=== PATIENT | male | born 1980 | race Caucasian/White ===

== ENCOUNTER 2025-03-11 09:42 | Emergency (ER) | payer BC, SELFPAY ==
[2025-03-11 09:48] VITALS: BP 147/100
[2025-03-11 11:00] LABS: Urine Character Cloudy (Clear)
[2025-03-11 11:07] LABS: Hematocrit 40.8 % (39.0-52.0); Hemoglobin 13.8 g/dL (13.0-18.0); Mean Corp Hgb Conc. 33.8 g/dL (33.0-37.0); Mean Corpuscular Volume 83.4 fL (80.0-94.0); Nucleated Red Blood Cells % 0 % (-); Platelet Count 252 10^3/uL (130-400); Red Cell Dist. Width 12.4 % (11.5-14.5)
[2025-03-11] MEDS: TORADOL 15 MG IV (11:07)
[2025-03-11] MEDS: NSS 1000 IV (11:07)
[2025-03-11 11:17] LABS: Urine Squamous Cell 0-2 /LPF (Few)
[2025-03-11 11:18] LABS: Urine Red Blood Cell 50-60 /HPF (0-2)
[2025-03-11 11:19] LABS: ALT (SGPT) 16 U/L (0-50); AST (SGOT) 18 U/L (17-59); Albumin 4.3 g/dl (3.5-5.0); Alkaline Phosphatase 77 U/L (38-126); Blood Urea Nitrogen 17 mg/dl (9-20); Calcium 9.1 mg/dl (8.4-10.2); Carbon Dioxide 24 mmol/L (22-30); Chloride 110 mmol/L (98-107); Glucose 118 mg/dl (70-99); Lipase 390 U/L (23-300); Potassium 4.5 mmol/L (3.5-5.1); Sodium 141 mmol/L (135-145); Total Protein 6.8 g/dl (6.3-8.2); eGFR > 60.00
--- NOTE | 2025-03-11 11:27 | ED.GENMED ---
History of Present Illness
General
Chief Complaint: Abdominal Pain
Time Seen by Provider: 03/11/25 10:28
History of Present Illness
History of Present Illness:
44-year-old male presenting to the emergency department for right-sided flank pain. Patient reports symptoms started this morning with right-sided pain. Also noted discoloration to his urine with some increased urgency and frequency. Denies
dysuria. Denies any prior history of kidney stones. Denies fever. Denies any abdominal surgeries. Notes some nausea without vomiting. Took ibuprofen prior to arrival without significant relief of pain. Denies chest pain or difficulty
breathing. Denies additional acute medical complaints.
Phy Exam
Physical Exam
Physical Exam:
General: Well-appearing, no clinical signs of dehydration, nontoxic and in no acute distress
HEENT: protecting airway
Neck: appears supple
CV: Normal heart rate, regular rhythm, no evidence of cyanosis
Resp: No accessory muscle use, no increased work of breathing, lungs clear to auscultation bilaterally
Abd: Soft and non-distended, no tenderness to palpation, normal bowel sounds
Extremities: No deformities, no swelling, no erythema, pulses and sensation intact
Neuro: alert, no focal neurologic deficit
: deferred
Rectal: deferred
Psych: Normal affect
Skin: Intact
Course
Orders/Labs/Results
Orders:
Orders
03/11/25 10:49
Complete Blood Count/With Diff Urgent
Comprehensive Metabolic Panel Urgent
Lipase Urgent
Urinalysis Reflex To Culture Urgent
Date Specimen was Collected: 03/11/25
Time Specimen was Collected: 10:15
Urine Microscopic Reflex Cult Urgent
Urine Culture Urgent
GRAYSON Source: U
Specimen Description:
Obtained by: Random
Date Specimen was Collected: 03/11/25
Time Specimen was Collected: 10:15
03/11/25 11:00
CT Abd/pel Without Iv Or Oral Urgent
Comment:
Reason For Exam: R-flank pain, suspected kidney stone
0.9% Sodium Chloride 1000 ml [Nss] 1,000 ml IV BOLUS
Ketorolac [Toradol] 15 mg IV NOW STA
03/11/25 12:56
Morphine Sulfate 4 mg IV NOW STA
Tamsulosin [Flomax] 0.4 mg PO NOW STA
Abnormal Lab Results
03/11/25
10:49
Neutrophils % 76.7 H %
(42.2-75.2)
Lymphocytes % 13.9 L %
(20.5-51.1)
Chloride 110 H mmol/L
(98-107)
Glucose 118 H mg/dl
(70-99)
Total Bilirubin 1.4 H mg/dl
(0.2-1.3)
Lipase 390 H U/L
(23-300)
Urine Ketones 1+ A
(Negative)
Ur Occult Blood Reflex 4+ A
(Negative)
Leukocyte Esterase Rfl 1+ A
(Negative)
Urine RBC 50-60 A /HPF
(0-2)
Urine Bacteria (Reflex) Many A
(Negative)
Urine Albumin (Reflex) 2+ A
(Neg - Trace)
03/11/25 10:49
03/11/25 10:49
Vital Signs
Initial and Last Documented VS:
Initial Vital Signs
Temp Pulse Resp BP Pulse Ox
98.0 F 102 20 147/100 100
03/11/25 09:48 03/11/25 09:48 03/11/25 09:48 03/11/25 09:48 03/11/25 09:48
Last Documented Vital Signs
Temp Pulse Resp BP Pulse Ox
98.0 F 102 20 147/100 100
03/11/25 09:48 03/11/25 09:48 03/11/25 09:48 03/11/25 09:48 03/11/25 11:29
MDM/Problems Addressed
MDM/Problems Addressed:
44-year-old male presenting for acute onset of right flank pain with urinary frequency. Vital signs are significant for hypertension.
On exam patient is in no acute distress, nontoxic, slightly uncomfortable secondary to pain. No reproducible pain to the back or the abdomen. Symptom presentation and physical exam appears most consistent with kidney stone. Lower suspicion for
infected stone given patient's nontoxic status. Will obtain laboratory analysis, urinalysis, CT abdominal imaging given no prior history
13:00 -CT shows a 2 mm nonobstructing stone. No signs of infection, afebrile, no leukocytosis. Pain still present, will administer morphine, however ultimately suspect that given size of stone, will pass on its own. Will control pain with
ultimate plan for disposition home with outpatient urology follow-up with expectant management.
*Pulse Oximetry
SaO2: 100
Oxygen Mode of Delivery: Room air
Patient hypoxic: no
*Critical Care Note
Total Time (30-74mins, 75-104mins- exclusive of procedures): Not Applicable
ED Attending Note
-
Portions of this chart may have been created with voice recognition software.� Occasional wrong word or��sound alike� substitutions may have occurred due to the inherent limitations of voice recognition software.
Discharge Plan
Departure
Patient with high blood pressure during this ER visit?: No
Condition: Good
Referrals:
NONE,* [Family Provider, Internal Medicine]
Interventions
Interventions:
*Risk Screen - Suicide Last Done: 03/11/25 09:48
*General Assessment Last Done: 03/11/25 09:48
*Neglect/Abuse Screening Last Done: 03/11/25 10:41
*ED COVID-19 Vaccine History Last Done: 03/11/25 10:41
*ED Influenza Vaccine History Last Done: 03/11/25 10:41
HB-Wrrtoc-Fnsghxfbzw Assessment Last Done: 03/11/25 10:41
Discharge Date and Time
Print Language: ICELANDIC
[2025-03-11] MEDS: FLOMAX 0.4 MG PO (13:02)
[2025-03-11] MEDS: MORPHINE SULFATE 4 MG IV (13:03)
[2025-03-11 13:07] VITALS: BP 142/96
== END 2025-03-11 14:10 | disposition home or self-care (01) ==
LOC: EMR 09:42
PROVIDERS: EMERGENCY PHYSICIAN Student in an Organized Health Care Education/Training Program
DX: N20.1 Calculus of ureter (principal); I10 Essential (primary) hypertension
CPT/HCPCS: 99284; 96374; 96375; 96361; 74176; 80053; 81003; 81015; 83690; 85025; 87086